=== PATIENT | female | born 1985 | race Two or more races ===

== ENCOUNTER → 2017-02-19 | Outpatient (CLI) | payer OTHER ==
--- NOTE | 2017-02-19 12:09 | REP ---
Thyroid ultrasound: The thyroid is upper normal size. The right lobe measures 4.91 0.9 x 1.6 cm. Left lobe measures 4.2 x 2.2 x 1.9 cm. The isthmus measures 10 mm thickness. There is a 4 mm cyst in the mid pole of the right lobe. There is a 3 mm cyst in the mid pole of the left lobe. Thyroid parenchyma is mildly heterogeneous diffusely. There are no other thyroid masses or cysts. Impression: The isthmus is thickened. The right and left lobes are upper normal size. The thyroid parenchyma is heterogeneous. There is a small cyst in the right lobe and a small cyst in the left lobe. Signed by Kiko Ayon MD 02/19/2017 12:01 P
== END ==
LOC: M LRY 08:42
PROVIDERS: ATTEND Obstetrics & Gynecology
DX: E04.1 Nontoxic single thyroid nodule (principal)